=== PATIENT | male | born 1990 | race Hispanic/Latino ===

== ENCOUNTER 2020-11-19 22:20 | Inpatient (IN) | payer SELFPAY ==
[~2020-11-19] VITALS: Ht 165.1 cm; Wt 70.4 kg
--- NOTE | 2020-11-19 22:25 | NUR ---
PT AMBULATED TO ROOM 9 FOR TRIAGE. PT STATES HE DRANK A LOT OF BEERS YESTERDAY AND TODAY ABDOMINAL PAIN.
[2020-11-19 23:18] LABS: HEMATOCRIT 41.3 % (39.0-50.0); IMMATURE GRANULOCYTES 0.2 % (0.0-5.0); MEAN CELL VOLUME 91.6 fL CALC (80.0-100.0); MEAN CORPUSCULAR HGB 35.3 pG CALC (26.0-32.0); MEAN CORPUSCULAR HGB CONC 38.5 g/dL CAL (32.0-36.0); NEUT# 7.72 thou/uL (1.82-7.42); RED BLOOD COUNT 4.51 mill/uL (4.70-6.10); RED CELL DISTRI WIDTH 13.4 % (11.5-15.5); URINE BILIRUBIN - DIPSTICK NEGATIVE (NEGATIVE); URINE BLOOD DIPSTICK TRACE-INTACT (NEGATIVE); URINE COLOR YELLOW; URINE GLUCOSE - DIPSTICK NEGATIVE (NEGATIVE); URINE KETONE NEGATIVE (NEGATIVE); URINE LEUK ESTERASE NEGATIVE (NEGATIVE); URINE NITRITE - DIPSTICK NEGATIVE (Negative); URINE PROTEIN - DIPSTICK NEGATIVE (NEG-TRACE); URINE SPECIFIC GRAVITY 1.025; URINE UROBILINOGEN - DIPSTICK 0.2 E.U./dL (0.2)
[2020-11-19 23:41] LABS: ALBUMIN 3.9 g/dL (3.2-5.0); ALKALINE PHOSPHATASE 177 u/l (38-126); AMYLASE 138 u/l (30-110); ANION GAP 18 (6-22 (CALC)); BILIRUBIN, TOTAL 2.1 mg/dL (0.0-1.4); BUN 8 mg/dL (9-20); BUN/CREATININE RATIO 9 (12-20 (CALC)); CARBON DIOXIDE 21 mmol/l (22-30); CHLORIDE 96 mmol/l (95-108); CREATININE 0.9 mg/dL (0.7-1.3); ETHYL ALCOHOL 70 mg/dl (0-30); GFR > 60 ML/MIN (>=60 (CALC)); GFR FOR AFR.AMER. > 60 ML/MIN (>=60 (CALC)); HEMOGLOBIN 13.9 g/dl (14.0-18.0); POTASSIUM 4.2 mmol/l (3.5-5.1); SGOT/AST 347 u/l (17-59); SODIUM 131 mmol/l (137-146); TOTAL PROTEIN 7.7 g/dL (6.3-8.2)
[2020-11-19 23:50] LABS: LIPASE 5522 u/l (23-300)
--- NOTE | 2020-11-19 23:52 | NUR ---
PATIENT RESTING QUIETLY AT THIS TIME, NO C/O PAIN OR DISCOMFORT, NO S/S OF DISTRESS NOTED, RESPIRATIONS EVEN AND UNLABORED, FAMILY AT BEDISDE.
--- NOTE | 2020-11-20 00:17 | NUR ---
RESTING QUIETLY, AWAITING INPATIENT BED.
--- NOTE | 2020-11-20 01:00 | NUR ---
PATIENT MEDICATED FOR NAUSEA AND PAIN, WATER GIVEN PER PATIENT REQUEST PER DIET ORDER, NO S/S OF IDSTRES SNOTED, RESPIRATIONS EVEN AND UNLABORED, LIGHTS DIMMED FOR COMFORT, WARM BLANKET GIVEN.
--- NOTE | 2020-11-20 02:57 | NUR ---
PATIENT RESTING WITH EYES CLOSED, RESPIRATIONS EVEN AND UNLABORED, NO C/O PAIN OR DISCOMFORT, NO S/S OF DISTRESS NOTED, AWAITING INPATIENT BED ASSIGNMENT.
--- NOTE | 2020-11-20 06:30 | NUR ---
PT MOVED TO ROOM 15 WITH HOSPITAL BED.
--- NOTE | 2020-11-20 07:00 | NUR ---
REPORT RECEIVED FROM MONICA CARUSO
--- NOTE | 2020-11-20 08:11 | NUR ---
DR HANSON AND JAMIN ROQUE BEDSIDE
[2020-11-20 09:00] VITALS: BP 104/75
--- NOTE | 2020-11-20 09:14 | NUR ---
PT MEDICATED FOR REPORTED ABD PAIN AND NAUSEA. TOLERATED ADMINISTRATION WELL. ADVISED OF CONT WAIT IN ER FOR ADMIT, VERBALIZED UNDERSTANDING. WARM BLANKETS PROVIDED. CALL LIGHT WITHIN REACH.
--- NOTE | 2020-11-20 15:55 | NUR ---
PT REPORT PROVIDED TO MERI CARUSO. PT TRANSPORTED TO FLOOR IN HOSPITAL BED IN STABLE CONDITION.
--- NOTE | 2020-11-20 16:20 | NUR ---
PT TO ROOM VIA BED ACCOMPANIED BY NURSE; Lucrecia WOMACK RN PRESENT INTERPRETOR; PT DENIES PAIN AT THIS TIME; STATES ONLY HAS IT WITH CERTAIN MOVEMENTS; #[address], NO REDNESS OR EDEMA NOTED; PT ORIENTED TO ROOM AND CALL SYSTEM; CALL TORO WITHIN REACH; WILL CONTINUE TO MONITOR.
[2020-11-20 16:21] VITALS: BP 123/73
--- NOTE | 2020-11-20 18:00 | NUR ---
PT TOLERATING FULL LIQ DIET WELL; WILL CONTINUE TO MONITOR.
[2020-11-20 19:40] VITALS: BP 138/86
--- NOTE | 2020-11-20 20:00 | NUR ---
PT ASSESSMENT COMPLETED AT THIS TIME. HE IS LAYING IN BED WITH LIGHTS AND TV ON. NO S/O DISTRESS NOTED. PT ABLE TO COMMUNICATE WITH ME IN BERMUDIAN MINIMAL, BUT ANSWERED MY QUESTIONS SO FAR. I WILL OBTAIN RAIL SIGNAL WORKER TO EXPLAIN MEDICATIONS WHEN ADMINISTEREING IF NEEDED FOR UNDERSTANDING. PT APPEARS TO HAVE VERY SLIGHTLY MILD HAND TRIMMERS AT THIS TIME. NO OTHER S/O DETOX. DENIES HALLUCINATIONS, VISUAL OR AUDITORY DISTURBANCES. NO S/O ANXIOUSNESS AT THIS TIME.
--- NOTE | 2020-11-20 23:49 | NUR ---
PT AWAKE, DENIES ANY NEEDS AT THIS TIME. MEDICATED ORDERS PROVIDE. NO S/O DISTRESS NOTED.
--- NOTE | 2020-11-21 00:03 | NUR ---
PT MEDICATED ORDERS PROVIDE. PT DENIES ANY NEEDS AT THIS TIME. CALL LIGHT AT SIDE AND PT ENCOURAGED TO CALL NEEDS ARISE.
[2020-11-21 03:50] VITALS: BP 121/76
--- NOTE | 2020-11-21 04:08 | NUR ---
PT MEDICATED FOR PAIN 7/10 ON PAIN SCALE. PT IV BECAME DISCONNECTED, GOWN AND BEDDING HAD SMALL AMOUNT OF BLOOD ON IT. GOWN AND BEDDING CHANGED AT THIS TIME AND IV TUBING RECONNECTED. SITE APPEARS HEALTHY AND PATENT AT THIS TIME. IVF REPLENISHED AT THIS TIME. PT DENIES ANY OTHER NEEDS. CALL LIGHT AT SIDE.
[2020-11-21 07:09] LABS: HEMATOCRIT 41.2 % (39.0-50.0); HEMOGLOBIN 14.1 g/dl (14.0-18.0); MEAN CELL VOLUME 94.7 fL CALC (80.0-100.0); MEAN CORPUSCULAR HGB 32.4 pG CALC (26.0-32.0); MEAN CORPUSCULAR HGB CONC 34.2 g/dL CAL (32.0-36.0); RED BLOOD COUNT 4.35 mill/uL (4.70-6.10); RED CELL DISTRI WIDTH 13.4 % (11.5-15.5)
[2020-11-21 07:28] LABS: ALBUMIN 3.3 g/dL (3.2-5.0); ALKALINE PHOSPHATASE 100 u/l (38-126); BUN 1 mg/dL (9-20); BUN/CREATININE RATIO 2 (12-20 (CALC)); CHLORIDE 96 mmol/l (95-108); CREATININE 0.8 mg/dL (0.7-1.3); GFR > 60 ML/MIN (>=60 (CALC)); GFR FOR AFR.AMER. > 60 ML/MIN (>=60 (CALC)); SGOT/AST 152 u/l (17-59); SODIUM 135 mmol/l (137-146); TOTAL PROTEIN 6.6 g/dL (6.3-8.2)
[2020-11-21 07:29] LABS: ANION GAP 10 (6-22 (CALC)); BILIRUBIN, TOTAL 3.3 mg/dL (0.0-1.4); CARBON DIOXIDE 32 mmol/l (22-30)
[2020-11-21 08:20] VITALS: BP 128/88
--- NOTE | 2020-11-21 08:49 | NUR ---
SHIFT CHANGE REPORT, PT AWAKE ALERT AND ORIENTED SITTING UP AT BEDSIDE, C/O LLQ PAIN @ 05/01 BUT REFUSES PAIN MED AT THIS TIME, IVF INFUSING, WANTS TO SPEAK WITH MD AND ADVISED HE WILL BE IN LATER, CALL TORO IN REACH.
--- NOTE | 2020-11-21 10:10 | NUR ---
PT DISCONNECTED IV FLUID FROM ARM STATING HE HAS FAST HEART RATE AND PAIN, ALSO CONCERNED HE HAD 2 BAGS IVF LAST HS AND THINKS ITS TOO MUCH. ADVISED SHOULD NOT MEDDLE WITH IV LINES HE COULD INFECT HIMSELF BADLY, WILL ADDRESS CONCERNS WITH MD. NURSE CLEANED IV HUBS AND RECONNECTED TO PT, WILL CONTINUE TO MONITOR.
--- NOTE | 2020-11-21 12:00 | NUR ---
PT C/O ABD. BLOATING STATING HE HASNT HAD A BM FOR 2 DAYS AND HE USUALLY GOES DAILY, MD NOTIFIED AND WROTE ORDERS.
[2020-11-21 15:00] VITALS: BP 108/64
--- NOTE | 2020-11-21 15:30 | NUR ---
RESTING IN BED, EDUCATED ON DULCOLAX SUPPOSITORY, AGREES TO HAVE NURSE ADMINISTER, DONE, WILL CONTINUE TO MONITOR, PT STILL C/O BLOATING WITH MILD PAIN TO LLQ BUT DOESNT WANT ANY PAIN MED.
--- NOTE | 2020-11-21 16:21 | NUR ---
REPORTED SMALL BM @ THIS TIME AND PASSING MUCH GAS.
[2020-11-21 18:31] VITALS: BP 112/66
[2020-11-21 19:33] LABS: BUN < 2 mg/dL (9-20); CARBON DIOXIDE 28 mmol/l (22-30); CHLORIDE 98 mmol/l (95-108); CREATININE 0.7 mg/dL (0.7-1.3); GFR > 60 ML/MIN (>=60 (CALC)); GFR FOR AFR.AMER. > 60 ML/MIN (>=60 (CALC)); SODIUM 134 mmol/l (137-146)
[2020-11-21 19:37] LABS: ANION GAP 12 (6-22 (CALC)); POTASSIUM 3.8 mmol/l (3.5-5.1)
--- NOTE | 2020-11-21 19:45 | NUR ---
PT AWAKE AND WATCHING TV. PROPPED UP IN THE BED. PT DENIES ANY PAIN AT THIS TIME. PT DENIES ANY NEEDS, OFFERED SNACK OR DRINK TO HIM, DENIED AT THIS TIME. CALL LIGHT AT SIDE.
--- NOTE | 2020-11-21 21:43 | NUR ---
PT CAME TO DESK AT 2134 AND SAID THAT THE DOCTOR TOLD HIM THAT HE CAN GO HOME TOMORROW, HOWEVER, HE IS NOT HAVING ANY MORE PAIN AND REALLY DOES NOT WANT TO WAIT UNTIL TOMORROW TO GO HOME. PT AGREED TO ALLOW HUR TO NOTIFY . DR RICHARDSON NOTIFIED. HE DID NOT WANT TO DISCHARGE THE PATIENT AND RECOMMENDED THAT HE STAY TONIGHT. PT WANTED TO GO. SO, PT SIGNED OUT AGAINST MEDICAL ADVISE. HE WAS INFORMED THAT THE PAIN MAY RETURN, HIS CONDITION MAY WORSEN, EVEN TO THE POINT OF . PT APPEARED NERVOUS BUT FREELY MOVED WITH NO RESTRICTIONS. HE VOICED THAT HE KNEW HE KNEW. BUT STILL WANTS TO LEAVE. HE WAS TOLD TO F/U WITH PRIMARY CARE PROVIDER OR RETURN TO ER NEEDED. HE AGREED TO DO DO.HE ACCEPTED RESPONSIBILITY FOR LEAVING AGAINST MEDICAL ADVISE. PT SPEAKS BROKEN GUATEMALAN AND THIS WAS EXPLAINED IN [facility] SO HE RECEIVED FULL UNDERSTANDING. GAIT FAST AND STEADY WAS HE WALKED OUT THE DOOR. PT LEFT AT 2144 WITH STEADY GAIT
--- NOTE | 2020-11-21 21:45 | NUR ---
PT WALKED TO NURSES STATION SMILING, STATED HE WANTED TO LEAVE. I TALKED WITH PT ABOUT HIS CONDITION AND PAIN, HE REPORTED THAT HE IS OUT OF PAIN NOW AND WANTED TO GO HOME. PT RETURNED TO HIS ROOM WHILE WE NOTIFIED THE PHYSICIAN QUILTER FIXER. HE HAD ALREADY PULLED HIS OWN IV OUT/SITE APPEARS HEALTHY WITHOUT BLEEDING. PT APPEARS STABLE WITHOUT DISTRESS. PHYSICIAN NOTIFIED AND PT INFORMED OF DANGERS OF LEAVING AGAINST MEDICAL ADVISE. PT VERBALIZED UNDERSTANDING OF RISKS, BUT PREFERRED TO LEAVE ANYWAY. PT WAS WILLING TO SIGN AMA FORM. INFORMATION TRANSLATED BY DANIEL ORTEGA ON MED SURG FLOOR. PT DID NOT APPEAR UPSET OR DISTRESSED, JUST VERBALIZED FEELING BETTER AND WANTING TO GO H0ME. SUPERVISION WAS ON MED SURG UNIT AT THIS TIME ALSO.
== END 2020-11-21 21:45 | disposition left against medical advice (07) | DRG 439 ==
LOC: ED 22:20 → ED-I 11-20 00:03 → ED 11-20 00:16 → ED-I 11-20 00:17 → MS2 11-20 05:56 → ED-I 11-20 06:30 → MS2 11-20 15:13
PROVIDERS: Family Medicine; Nurse Practitioner Family; Physician Assistant; ADMIT Internal Medicine; ATTEND Internal Medicine
DX: K85.20 Alcohol induced acute pancreatitis without necrosis or infection (principal); F10.139 Alcohol abuse with withdrawal, unspecified; E87.6 Hypokalemia; Z20.822 Contact with and (suspected) exposure to COVID-19
CPT/HCPCS: J1650; S0164

== ENCOUNTER 2024-12-14 10:46 | Emergency (ER) | payer OTHER ==
[2024-12-14] VITALS (18 sets, daily range): BP systolic 98–139; BP diastolic 54–97
[~2024-12-14] VITALS: Ht 165.1 cm; Wt 84.0 kg
[2024-12-14] MEDS ORDERED: KETOROLAC TROMETHAMINE 15 MG/ML SDV IV STA (12:04)
[2024-12-14 12:37] LABS: BASO% 0.1 % (0-3); EOS% 0.3 % (0-8); HEMATOCRIT 44.9 % (39.0-50.0); IMMATURE GRANULOCYTES 0.3 % (0.0-5.0); LYMPH% 12.7 % (15-41); MEAN CELL VOLUME 97.8 fL CALC (80.0-100.0); MEAN CORPUSCULAR HGB 35.9 pG CALC (26.0-32.0); MEAN CORPUSCULAR HGB CONC 36.7 g/dL CAL (32.0-36.0); MONO% 3.8 % (2-13); NEUT# 8.94 thou/uL (1.82-7.42); NEUT% 82.8 % (42-76); RED BLOOD COUNT 4.59 mill/uL (4.70-6.10); RED CELL DISTRI WIDTH 13.3 % (11.5-15.5)
[2024-12-14 12:38] LABS: HEMOGLOBIN 16.5 g/dl (14.0-18.0)
[2024-12-14 12:52] LABS: ALBUMIN 3.7 g/dL (3.2-5.0); BILIRUBIN, TOTAL 2.4 mg/dL (0.2-1.3); CHLORIDE 102 mmol/l (95-108); CREATININE 0.7 mg/dL (0.7-1.3); ESTIMATED GFR 125 ML/MIN (>=90 (CALC)); POTASSIUM 4.1 mmol/l (3.5-5.1); SODIUM 133 mmol/l (137-146); TOTAL PROTEIN 7.9 g/dL (6.3-8.2)
[2024-12-14 12:53] LABS: ALKALINE PHOSPHATASE 181 u/l (38-126); ANION GAP 17 (6-22 (CALC)); BUN < 2 mg/dL (9-20); CARBON DIOXIDE 18 mmol/l (22-30); SGOT/AST 289 u/l (17-59)
[2024-12-14 13:06] LABS: LIPASE 4444 u/l (23-300)
[2024-12-14] MEDS ORDERED: SODIUM CHLORIDE 0.9% 1,000 ML IV ONE (14:55)
[2024-12-14 16:17] LABS: URINE BLOOD DIPSTICK Trace-intact (NEGATIVE); URINE GLUCOSE - DIPSTICK Negative (NEGATIVE); URINE KETONE Negative (NEGATIVE); URINE LEUK ESTERASE Negative (NEGATIVE); URINE NITRITE - DIPSTICK Negative (Negative); URINE PH 8.5 (4.5-8.0); URINE PROTEIN - DIPSTICK 30 mg/dL (NEG-TRACE); URINE UROBILINOGEN - DIPSTICK 0.2 E.U./dL (0.2)
[2024-12-14 16:19] LABS: URINE COLOR Dark yellow
[2024-12-14 16:23] LABS: URINE RBC 0-2 RBC/hpf (0-5)
== END 2024-12-14 17:10 | disposition short-term general hospital (02) | DRG 438 ==
LOC: ED 10:46
PROVIDERS: Emergency Medicine
DX: K85.90 Acute pancreatitis without necrosis or infection, unspecified (principal); K83.1 Obstruction of bile duct
CPT/HCPCS: J1885; Q9967